=== PATIENT | female | born 1940 | race Caucasian/White ===

== ENCOUNTER 2020-03-14 14:55 | Emergency (ER) | payer MEDICARE ==
[~2020-03-14] VITALS: Ht 160 cm; Wt 72.6 kg
[2020-03-14] MEDS ORDERED: KETOROLAC TROMETHAMINE INJ 30 MG/ML VIAL IV ONE (15:30)
[2020-03-14] MEDS ORDERED: IV NS 0.9% 500 ML BAG IV ONE (15:30)
[2020-03-14] MEDS ORDERED: METOCLOPRAMIDE HCL 10 MG/2 ML VIAL IV ONE (15:30)
--- NOTE | 2020-03-14 15:30 | NUR ---
high blood pressure; family called 911; BP -field = 213/98. PT AAOX4, C/O COX & DIZZINESS. RR EVEN & UNLABORED. DENIES CP, SOB, N/V AT THIS TIME. PT SEEN & EVAL'D BY DR. ALLISON. PLACED ON AUTOMOBILE MECHANIC SUPERVISOR, SR. WILL CONT TO MONITOR.
[2020-03-14 15:58] LABS: BASOPHILS % (AUTO) 0.1 % (0.0-2.0); EOSINOPHILS % (AUTO) 0.3 % (0.0-6.0); HEMATOCRIT 41 % (33-45); HEMOGLOBIN 13.4 g/dL (11.5-14.8); LYMPHOCYTES # (AUTO) 0.5 /CMM (0.8-4.8); LYMPHOCYTES % (AUTO) 8.9 % (20.0-44.0); MEAN CORPUSCULAR HGB CONC 33 g/dl (31.0-36.0); MEAN CORPUSCULAR VOLUME 89 fL (82-100); MONOCYTES # (AUTO) 0.3 /CMM (0.1-1.30); MONOCYTES % (AUTO) 6.3 % (2.0-12.0); NEUTROPHILS # (AUTO) 4.4 /CMM (1.8-8.9); NEUTROPHILS % (AUTO) 84.4 % (43.0-81.0); PLATELET COUNT (AUTO) 181 /CMM (150-450); RED BLOOD CELL COUNT(AUTO) 4.55 MIL/uL (4.0-5.2); WHITE BLOOD COUNT (AUTO) 5.3 K/uL (4.3-11.0)
[2020-03-14] MEDS ORDERED: KETOROLAC TROMETHAMINE INJ 30 MG/ML VIAL ONE (16:05)
[2020-03-14] MEDS ORDERED: METOCLOPRAMIDE HCL 10 MG/2 ML VIAL ONE (16:06)
[2020-03-14 16:11] LABS: CALCIUM, SERUM 8.7 mg/dL (8.5-10.1); CREATININE 0.9 mg/dL (0.6-1.3)
[2020-03-14] MEDS ORDERED: CLONIDINE HCL 0.1 MG TABLET ONE (16:17)
[2020-03-14] MEDS ORDERED: CLONIDINE HCL 0.1 MG TABLET PO ONE (16:30)
--- NOTE | 2020-03-14 17:41 | NUR ---
Patient discharged to home in stable condition. Written and verbal after care instructions given. Patient verbalizes understanding of instruction. IV removed. Catheter intact and site benign. Pressure and 4x4 applied to site. No bleeding noted.
[2020-03-14 17:42] VITALS: BP 142/72
== END 2020-03-14 17:42 | disposition home or self-care (01) ==
LOC: ER 14:58
DX: I10 Essential (primary) hypertension (principal); R51 Headache
CPT/HCPCS: 36415; 70450; 80048; 85025; 93005; 96374; 96375; 99285; J1885; J2765; J7040

== ENCOUNTER 2021-12-31 23:11 | Inpatient (IN) | payer MEDICARE ==
[~2021-12-31] VITALS: Ht 157.5 cm; Wt 64.0 kg
--- NOTE | 2021-12-31 23:15 | NUR ---
RN ADMITTING NOTE PATIENT RECEIVED FROM [facility], REPORT GIVEN BY HECTOR TORRES. PATIENT ACCOMPANIED BY 2 EMT. PATIENT IS ON RA, TOLERATING WELL WITH 97% O2 SAT, NO SOB, LUNGS CLEAR UPON AUSCULTATION. PATIENT CONFUSED, UNABLE TO STATE NAME, PLACE, TIME. FAMILY ALSO AT BEDSIDE, PER DAUGHTER, PATIENT'S AMS STARTED IN AM WHEN SHE VISITED HER MOM. PATIENT LIVES ALONE. PATIENT IS VACCINATED WITH COVID X 2. PATIENT'S TELE MONITOR READS SR WITH PVC 80 BPM. SKIN ASSESSED. PATIENT CAME FROM [place] WITH RESTRAINTS ON D/T PULLING OUT LINES, DECLOTHING, TRYING TO GET OUT OF THE BED. SAFETY MEASURES IMPLEMENTED: BED LOCKED AND IN LOWEST POSITION, CALL LIGHT WITHIN REACH, SIDE RAILS UP. WILL MONITOR PATIENT CLOSELY.
[2021-12-31 23:21] VITALS: BP 116/69
--- NOTE | 2021-12-31 23:50 | NUR ---
NURSING SWALLOW EVAL PATIENT UNABLE TO FOLLOW COMMAND TO SHOW TONGUE, COUGH VOLUNTARILY, SHOW TEETH. PATIENT IS ALSO SHAKING HEAD SIDE TO SIDE INDICATING NO, EVEN WITH INTERPRETATION. WILL NOTIFY .
--- NOTE | 2022-01-01 00:40 | NUR ---
LENNY PATEL TO OBTAIN ADMITTING ORDERS
--- NOTE | 2022-01-01 01:15 | NUR ---
RN NOTE MD CALLED BACK. NOTIFIED MD REGARDING PATIENT TRYING TO TAKE LINES OUT MULTIPLE TIMES AND GETTING OUT OF BED, PATIENT RESTLESS. ORDER FOR RESTRAINTS OBTAINED. NOTIFIED MD REGARDING FAILED NURSING SWALLOW EVAL. AWAITING THE REST OF ADMITTING ORDERS
[2022-01-01] MEDS ORDERED: Z GUARD REMEDY 4 OZ OINT TP PRN (01:30)
[2022-01-01] MEDS ORDERED: AZITHROMYCIN 250 MG TABLET PO ONE (01:30)
[2022-01-01] MEDS ORDERED: MAG HYDROX/AL HYDROX/SIMETH 30 ML UDC PO PRN (01:30)
[2022-01-01] MEDS ORDERED: CEFTRIAXONE 1 G in IV D5W 50 ML IV SCH (01:30)
[2022-01-01] MEDS ORDERED: ZOLPIDEM TARTRATE 5 MG TABLET PO PRN (01:30)
[2022-01-01] MEDS ORDERED: MAGNESIUM HYDROXIDE 30 ML UDC PO PRN (01:30)
[2022-01-01] MEDS ORDERED: ONDANSETRON HCL/PF 4 MG/2 ML VIAL IVP PRN (01:30)
[2022-01-01] MEDS: IV NS 0.9% 1,000 ML IV SCH ×3 (01:53→21:27)
[2022-01-01] MEDS ORDERED: CEFTRIAXONE 1 G VIAL ONE (01:55)
--- NOTE | 2022-01-01 01:55 | NUR ---
RN NOTE MD PAGED RE: ZITHROMAX ORDER CLARIFICATION. ORDER IS PO, PATIENT NPO AT THIS TIME
[2022-01-01 04:00] VITALS: BP_SYST 132; BP_SYST 148; BP_DIAS 62; BP_DIAS 84
--- NOTE | 2022-01-01 05:30 | NUR ---
5am EKG done. Results not transferring to cardio kitchen food server. Results are given to RN and placed in physical chart.
[2022-01-01 06:37] LABS: BASOPHILS % (AUTO) 0.2 % (0.0-2.0); EOSINOPHILS % (AUTO) 0.3 % (0.0-6.0); HEMATOCRIT 38 % (33-45); HEMOGLOBIN 12.9 g/dL (11.5-14.8); LYMPHOCYTES # (AUTO) 1.2 K/uL (0.8-4.8); LYMPHOCYTES % (AUTO) 16.2 % (20.0-44.0); MEAN CORPUSCULAR HGB CONC 34 g/dl (31.0-36.0); MEAN CORPUSCULAR VOLUME 88 fL (82-100); MONOCYTES # (AUTO) 0.7 K/uL (0.1-1.30); MONOCYTES % (AUTO) 8.7 % (2.0-12.0); NEUTROPHILS # (AUTO) 5.7 K/uL (1.8-8.9); NEUTROPHILS % (AUTO) 74.6 % (43.0-81.0); PLATELET COUNT (AUTO) 219 K/uL (150-450); RED BLOOD CELL COUNT(AUTO) 4.28 MIL/uL (4.0-5.2); WHITE BLOOD COUNT (AUTO) 7.6 K/uL (4.3-11.0)
--- NOTE | 2022-01-01 06:48 | NUR ---
RN CLOSING NOTE PATIENT IN BED, AWAKE, STILL RESTLESS IN BED TRYING TO GET OUT OF BED. PATIENT SWINGS HER LEGS OUT OF THE BED. GOT OUT OF RESTRAINTS TWICE. RESTRAINTS PLACED D/T PATIENT REMOVING EQUIPMENT AND IV LINES, AND GETTIN GOUT OF BED. NO INJURY NOTED. CHARGE NRUSE AWARE. POSSIBLY GETTING A SITTER. PATIENT IS ON RA 97% O2 SAT. PATIENT CURRENTLY NPO AT THIS TIME, DT PATIENT NOT ABLE TO FOLLOW COMMANDS. PER CANDY POLISHER PATIENT IS SAYING YES SHE CAN DO IT, BUT NOT FOLLOWING THROUGH WITH ACTION. PATIENT'S FAMILY WILL BRING HOME MEDS TODAY. TELE MONITOR READS SR 75 BPM. LAC 22 G PATENT AND INTACT RUNNING NS AT 100 ML/HR. SAFETY MEASURES IN PLACE: BED LOCKED AND IN LOWEST POSITION, CALL LIGHT WITHIN REACH, SIDE RAILS UP. ALL NEEDS MET AND ATTENDED. WILL ENDORSE TO DAY SHIFT NURSE FOR RASHI
[2022-01-01 07:23] LABS: CALCIUM, SERUM 8.3 mg/dL (8.5-10.1); CARBON DIOXIDE 23 mmol/L (21-32); CHLORIDE 105 mmol/L (98-107); CREATININE 0.9 mg/dL (0.6-1.3); GLUCOSE 120 mg/dL (74-106); MAGNESIUM 1.5 mg/dL (1.8-2.4); PHOSPHORUS 3.2 mg/dL (2.5-4.9); POTASSIUM 3.7 mmol/L (3.5-5.1); SODIUM SERUM 140 mmol/L (136-145); UREA NITROGEN, BLOOD 15 mg/dL (7-18)
[2022-01-01 07:28] LABS: CHOLESTEROL 133 mg/dL (<200); HDL CHOLESTEROL 42 mg/dL (40-60); LDL 66 mg/dL (0-99); TRIGLYCERIDES 159 mg/dL (30-150)
--- NOTE | 2022-01-01 07:30 | NUR ---
MS RN OPENING NOTES RECEIVED PATIENT ON BED AWAKE AND A/O X0-1, CONFUSED. ON ROOM AIR TOLERATING WELL. NO SOB NOTED. NOT IN DISTRESS. WITH IV ACCESS AT THE LEFT AC G22 WITH NS AT 100ML/HR INFUSING WELL. SAFETY MEASURES IN PLACED. CALL LIGHT WITHIN REACH. BED ON LOWEST LOCKED POSITION, SIDE RAILS UP X2. WILL CONTINUE TO MONITOR.
[2022-01-01 08:00] VITALS: BP 150/72
--- NOTE | 2022-01-01 08:17 | NUR ---
DAUGHTER JAMIL [phone]
[2022-01-01] MEDS ORDERED: DEXTROSE 50%-WATER 50 ML DISP.SYRIN IV PRN (08:30)
[2022-01-01] MEDS ORDERED: DEXL60CA3 PO (08:34)
[2022-01-01] MEDS ORDERED: PREG-58 PO (08:34)
[2022-01-01] MEDS ORDERED: RANO10005 PO (08:34)
[2022-01-01] MEDS ORDERED: EMPA1TAB24 PO (08:34)
[2022-01-01] MEDS ORDERED: NEBI10TA2 PO (08:34)
[2022-01-01] MEDS ORDERED: CELE-85 PO (08:34)
[2022-01-01] MEDS ORDERED: CLOP75TA15 PO (08:34)
[2022-01-01] MEDS ORDERED: LINA1TAB9 PO (08:34)
[2022-01-01] MEDS ORDERED: IRBESARTAN-HCTZ PO (08:34)
--- NOTE | 2022-01-01 09:19 | NUR ---
WOUND CARE CONSULT: PTY PRESENTS WITH DISCOLORATION TO RT ARM AND HAND WELL SACRAL INTACT DEEP TISSUE INJURY, PRESENT ON ADMISSION. RECOMMENDATIONS MADE FOR SKIN PROTECTION. DISCUSSED WITH NURSING STAFF. MD IN AGREEMENT WITH PLAN OF CARE. SITTER AT BEDSIDE.
[2022-01-01] MEDS: BLOOD SUGAR DIAGNOSTIC 1 EACH STRIP IN SCH ×4 (10:07→21:46)
[2022-01-01] MEDS: Magnesium 1GM/D5W 100ML PREMIX 100 ML IV SCH ×2 (11:16→12:51)
[2022-01-01 16:00] VITALS: BP 152/71
--- NOTE | 2022-01-01 19:30 | NUR ---
MS RN CLOSING NOTES PATIENT ON BED AWAKE AND A/O X0-1, CONFUSED. ON ROOM AIR TOLERATING WELL. NO SOB NOTED. NOT IN DISTRESS. WITH IV ACCESS AT THE LEFT AC G22 WITH NS AT 100ML/HR INFUSING WELL. DUE MEDS GIVEN. SAFETY MEASURES IN PLACED. CALL LIGHT WITHIN REACH. BED ON LOWEST LOCKED POSITION, SIDE RAILS UP X2. WILL ENDORSE TO NEXT SHIFT FOR RASHI.
--- NOTE | 2022-01-01 19:59 | NUR ---
RECEIVED PATIENT IN BED, ALERT/AWAKE, CALM, NOT IN APPARENT DISTRESS, LEFT ARM RESTRAINT, IVF INFUSING, INCONTINENT OF BOWEL AND BLADDER, PUREWICK IN PLACE. SITTER AT THE BEDSIDE, KEPT SAFE, WILL CONTINUE TO MONITOR.
[2022-01-01 20:00] VITALS: BP 148/79
[2022-01-01 20:25] LABS: HEMOGLOBIN 13.5 g/dL (11.5-14.8)
[2022-01-01] MEDS: CEFTRIAXONE 1 G in IV D5W 50 ML IV SCH (20:40)
--- NOTE | 2022-01-01 21:27 | NUR ---
NS NOT ADMINISTERED, PREVIOUS NS STILL INFUSING
[2022-01-01] MEDS: INSULIN REGULAR, HUMAN 100 UNIT/ML 3 ML VIAL SQ PRN (21:49)
--- NOTE | 2022-01-01 21:50 | NUR ---
BILATERAL WRIST RESTRAINTS REMOVED, PATIENT ASLEEP WITH SITTER AT THE BEDSIDE
--- NOTE | 2022-01-01 21:50 | NUR ---
NO INSULIN GIVEN, BG 95 MG/DL
[2022-01-02] VITALS: BP 135/72
[2022-01-02 04:00] VITALS: BP 144/76
[2022-01-02 04:07] LABS: BASOPHILS % (AUTO) 0.2 % (0.0-2.0); EOSINOPHILS % (AUTO) 0.8 % (0.0-6.0); HEMATOCRIT 37 % (33-45); HEMOGLOBIN 12.5 g/dL (11.5-14.8); LYMPHOCYTES # (AUTO) 1.2 K/uL (0.8-4.8); LYMPHOCYTES % (AUTO) 18.8 % (20.0-44.0); MEAN CORPUSCULAR HGB CONC 34 g/dl (31.0-36.0); MEAN CORPUSCULAR VOLUME 88 fL (82-100); MONOCYTES # (AUTO) 0.5 K/uL (0.1-1.30); MONOCYTES % (AUTO) 7.6 % (2.0-12.0); NEUTROPHILS # (AUTO) 4.8 K/uL (1.8-8.9); NEUTROPHILS % (AUTO) 72.6 % (43.0-81.0); PLATELET COUNT (AUTO) 219 K/uL (150-450); RED BLOOD CELL COUNT(AUTO) 4.18 MIL/uL (4.0-5.2); WHITE BLOOD COUNT (AUTO) 6.6 K/uL (4.3-11.0)
[2022-01-02 04:22] LABS: CARBON DIOXIDE 22 mmol/L (21-32); CHLORIDE 106 mmol/L (98-107); CREATININE 0.7 mg/dL (0.6-1.3); GLUCOSE 86 mg/dL (74-106); MAGNESIUM 1.8 mg/dL (1.8-2.4); PHOSPHORUS 3.1 mg/dL (2.5-4.9); POTASSIUM 3.5 mmol/L (3.5-5.1); SODIUM SERUM 139 mmol/L (136-145); UREA NITROGEN, BLOOD 10 mg/dL (7-18)
[2022-01-02] MEDS: IV NS 0.9% 1,000 ML IV SCH ×2 (06:20→17:39)
[2022-01-02] MEDS: INSULIN REGULAR, HUMAN 100 UNIT/ML 3 ML VIAL SQ PRN ×3 (06:44→22:17)
--- NOTE | 2022-01-02 06:44 | NUR ---
NO INSULIN GIVEN, BG 82 MG/DL
--- NOTE | 2022-01-02 06:45 | NUR ---
ALERT/ORIENTED X1, CONFUSED, CALM, COOPERATIVE, NO DISTRESS, NO COMPLAIN OF PAIN. REMOVED BILATERAL WRIST RESTRAINTS, NS AT 100 ML/HR, SITTER AT THE BEDSIDE FOR SAFETY, PATIENT REMOVING IV LINE. REMAINED NPO PENDING ST EVAL. ROCEPHIN FOR UTI.
[2022-01-02] MEDS: BLOOD SUGAR DIAGNOSTIC 1 EACH STRIP IN SCH ×4 (06:52→22:14)
--- NOTE | 2022-01-02 07:30 | NUR ---
HEAD MILLER OPENING NOTES RECEIVED PATIENT LYING IN BED COMFORTABLY. PATIENT IS ALERT/ORIENTED X 2 (PLACE, NAME). PATIENT HAS NO S/S OF PAIN, DISCOMFORT AND SOB IN ROOM AIR. REMOVED BILATERAL WRIST RESTRAINTS. IV LINE IN L AC #22G WITH NS AT 100 ML/HR, INTACT AND PATENT. SITTER BY THE BEDSIDE FOR SAFETY. REMAINED NPO FOR ST EVAL. SAFETY MEASURES INITIATED. WILL CONTINUE TO MONITOR FOR RASHI.
[2022-01-02 13:07] LABS: BILIRUBIN,URINE NEGATIVE (NEGATIVE); COLOR,URINE YELLOW (YELLOW); LEUKOCYTE ESTERASE ,URINE NEGATIVE (NEGATIVE); NITRITE, URINE NEGATIVE (NEGATIVE); PROTEIN,URINE NEGATIVE (NEGATIVE); UGLUCOSE 500 MG/DL mg/dL (NEGATIVE); UROBILINOGEN,URINE 0.2 EU/dL (0.2)
--- NOTE | 2022-01-02 18:25 | NUR ---
BAIT MAKER CLOSING NOTES PATIENT LYING IN BED COMFORTABLY. PATIENT IS ALERT/ORIENTED X 2 (PLACE, NAME). PATIENT HAS NO S/S OF PAIN, DISCOMFORT AND SOB IN ROOM AIR. REMOVED BILATERAL WRIST RESTRAINTS. IV LINE IN L AC #22G WITH NS AT 100 ML/HR, INTACT AND PATENT. DAUGHTER BY THE BEDSIDE. SITTER BY THE BEDSIDE FOR SAFETY. DIET IS SWITCHED TO SOFT DIET. SAFETY MEASURES INITIATED. WILL ENDORSE TO INCOMING FOR RASHI.
[2022-01-02 20:00] VITALS: BP 133/76
[2022-01-02] MEDS: CEFTRIAXONE 1 G in IV D5W 50 ML IV SCH (21:14)
[2022-01-02] MEDS: AZITHROMYCIN 250 MG TABLET PO SCH (21:14)
[2022-01-03 04:00] VITALS: BP 136/76
[2022-01-03] MEDS: IV NS 0.9% 1,000 ML IV SCH ×3 (04:57→23:43)
[2022-01-03] MEDS: BLOOD SUGAR DIAGNOSTIC 1 EACH STRIP IN SCH ×4 (06:45→22:00)
[2022-01-03] MEDS: INSULIN REGULAR, HUMAN 100 UNIT/ML 3 ML VIAL SQ PRN ×4 (06:47→23:41)
--- NOTE | 2022-01-03 06:52 | NUR ---
WITH CONFUSION, PALESTINIAN SPEAKING ONLY, CALM, COOPERATIVE, ROOM AIR, NO COMPLAIN OF PAIN, WEAKNESS, ACCUCHECK WITH SLIDING SCALE, UPGRADED DIET TO SOFT, SWALLOWS MEDICATION WHOLE, ROCEPHIN FOR UTI, ZITHROMAX PO, CONTINUE IVF, FALL PRECAUTION, SITTER AT THE BEDSIDE, SUPPORTIVE CARE.
--- NOTE | 2022-01-03 07:30 | NUR ---
MAIL TELLER OPENING NOTES RECEIVED PATIENT LYING IN BED COMFORTABLY. PATIENT IS ALERT/ORIENTED X 2 (PLACE, NAME). PATIENT HAS NO S/S OF PAIN, DISCOMFORT AND SOB IN ROOM AIR. REMOVED BILATERAL WRIST RESTRAINTS. IV LINE IN L AC #22G WITH NS AT 100 ML/HR, INTACT AND PATENT. SITTER BY THE BEDSIDE FOR SAFETY. DIET IS SWITCHED TO SOFT DIET. SAFETY MEASURES INITIATED. WILL CONTINUE TO MONITOR FOR RASHI.
--- NOTE | 2022-01-03 18:54 | NUR ---
RN NOTES: PATIENT PULLED OUT IV ACCESS, REINSERTED IV ACCESS ON RIGHT HAND G#20 PATENT AND INTACT, SECURED WITH TAPE AND COVERED WITH KERLIX DRESSING.
--- NOTE | 2022-01-03 18:57 | NUR ---
MS RN CLOSING NOTES PATIENT LYING IN BED AWAKE. PATIENT IS ALERT/ORIENTED X 2 . PATIENT HAS NO S/S OF PAIN, DISCOMFORT AND SOB IN ROOM AIR. IV LINE IN RIGHT HAND #20G WITH NS AT 100 ML/HR, INTACT AND PATENT. SITTER BY THE BEDSIDE FOR SAFETY. SAFETY MEASURES MAINTAINED:BED IN LOWEST AND LOCKED POSITION, SIDE RAILS UP X 2 CALL LIGHT IN EASY REACH FOR HELP/ASSISTANCE. WILL CONTINUE TO MONITOR AND ENDORSED TO CERTIFIED LEGAL SECRETARY SPECIALIST FOR RASHI.
[2022-01-03 20:00] VITALS: BP_SYST 100; BP_SYST 135; BP_DIAS 61; BP_DIAS 63
--- NOTE | 2022-01-03 20:00 | NUR ---
RN OPENING NOTES: RECEIVED PATIENT SLEEP IN BED AROUSABLE TO VERBAL STIMULI, BED IN LOW POSITION CALL LIGHTS WITHIN REACH, NO COMPLAIN OF PAIN AND DISCOMFORT AT THIS TIME,ON ROOM AIR SATURATING WELL WITH IV LINE AT RT HAND WITH ONGOING NSS@100ML/HR INFUSING WELL, PATIENT WITH 1:1 SITTER, PATIENT KEPT CLEAN AND DRY ALL NEEDS MET WILL CONTINUE TO MONITOR.
[2022-01-03] MEDS: CEFTRIAXONE 1 G in IV D5W 50 ML IV SCH (21:43)
[2022-01-03] MEDS: AZITHROMYCIN 250 MG TABLET PO SCH (21:45)
--- NOTE | 2022-01-03 23:45 | NUR ---
RN NOTES: BS-149- 3 UNITS INSULIN GIVEN PER SLIDING SCALE
--- NOTE | 2022-01-04 06:17 | NUR ---
RN CLOSING NOTES: PATIENT SLEEP IN BED COMFORTABLY, AROUSABLE TO VERBAL STIMULI, BED IN LOW POSITION CALL LIGHTS WITHIN REACH, NO COMPLAIN OF PAIN AND DISCOMFORT AT THIS TIME, ON ROOM AIR SATURATING WELL WITH : 1:1 SITTER, PATIENT KEPT CLEAN AND DRY ALL NEEDS MET ENDORSE TO INCOMING SHIFT.
--- NOTE | 2022-01-04 06:30 | NUR ---
RN NOTES: BLOOD SUGAR-129- NO INSULIN GINVE PER SLIDING SCALE
[2022-01-04] MEDS: BLOOD SUGAR DIAGNOSTIC 1 EACH STRIP IN SCH ×4 (06:40→21:58)
--- NOTE | 2022-01-04 08:18 | NUR ---
MS RN OPENING NOTES RECEIVED PATIENT IN BED, A/O X2, CONFUSED. ON ROOM AIR; BREATHING EVEN AND UNLABORED; NO SOB NOTED. ABLE TO VERBALIZE NEEDS. NO COMPLAINS OF PAIN. PATIENT IS ON A 5250 HOLD. LAC IV G#20 SL, INTACT AND PATENT. SAFETY MEASURES MAINTAINED: BED IN LOW POSITION AND LOCKED, SIDE RAILS UP X2, CALL LIGHT WITHIN REACH. WILL CONTINUE TO MONITOR PATIENT.
[2022-01-04] MEDS: IV NS 0.9% 1,000 ML IV SCH ×2 (08:54→19:30)
--- NOTE | 2022-01-04 10:14 | NUR ---
PROCESS ENGINEER/MED RECON PATIENT AND FAMILY AT BEDSIDE, MADE AWARE RE: IRBESARTAN BEING NON-FORMULARY. FAMILY WILL BRING HOME MEDICATION SUPPLY LATER. PHARMACY AND PRIMARY RN AWARE.
[2022-01-04 16:09] VITALS: BP 172/79
[2022-01-04] MEDS: RANOLAZINE 500 MG TAB.ER.12H PO SCH (16:10)
[2022-01-04] MEDS: PREGABALIN 25 MG CAPSULE PO SCH (16:11)
[2022-01-04] MEDS: INSULIN REGULAR, HUMAN 100 UNIT/ML 3 ML VIAL SQ PRN ×2 (17:10→22:00)
--- NOTE | 2022-01-04 18:37 | NUR ---
MS RN CLOSING NOTES PATIENT REMAINS IN BED, A/O X2, CONFUSED, FAMILY AT BEDSIDE. ON ROOM AIR; BREATHING EVEN AND UNLABORED; NO SOB NOTED DURING SHIFT. ABLE TO VERBALIZE NEEDS. NO COMPLAINS OF PAIN. PATIENT IS ON A 5250 HOLD. LAC IV G#20 SL, INTACT AND PATENT.ALL NEEDS ATTENDED DURING THE DAY. DC PLAN FOR TOMORROW. SAFETY MEASURES MAINTAINED: BED IN LOW POSITION AND LOCKED, SIDE RAILS UP X2, CALL LIGHT WITHIN REACH. WILL ENDORSE TO DIRECTOR OF OPERATIONS HOME HEALTH NURSE FOR RASHI.
[2022-01-04 20:00] VITALS: BP 156/68
[2022-01-04] MEDS: AZITHROMYCIN 250 MG TABLET PO SCH (20:46)
[2022-01-04] MEDS: CEFTRIAXONE 1 G in IV D5W 50 ML IV SCH (20:46)
[2022-01-04] MEDS: METOPROLOL TARTRATE 50 MG TABLET PO SCH (20:46)
--- NOTE | 2022-01-05 02:43 | NUR ---
RN OPENING NOTES RECEIVED PT IN BED, AWAKE, WITH FAMILY MEMBER AT BEDSIDE. AOx2. ON RA AND TOLERATING WELL. NO SOB NOTED. NO S/SX OF RESPIRATORY DISTRESS NOTED. IV ACCESS IN R HAND #20G RUNNING NS @ 100 ML/HR. SAFETY PRECAUTIONS IN PLACE: BED IN LOWEST, LOCKED POSITION, SIDERAILS UPx2, AND BRAKES ON. TABLE AND CALL LIGHT WITHIN REACH. WILL CONTINUE TO MONITOR. Addendum: 01/05/22 at 0246 by NIKKY MALONEY RN TIME SHOULD BE AT 1930
[2022-01-05] MEDS: IV NS 0.9% 1,000 ML IV SCH ×2 (05:30→15:38)
[2022-01-05] MEDS: BLOOD SUGAR DIAGNOSTIC 1 EACH STRIP IN SCH ×4 (06:35→21:35)
[2022-01-05] MEDS: INSULIN REGULAR, HUMAN 100 UNIT/ML 3 ML VIAL SQ PRN ×4 (06:36→21:37)
[2022-01-05 06:41] LABS: BASOPHILS % (AUTO) 0.3 % (0.0-2.0); EOSINOPHILS % (AUTO) 3.1 % (0.0-6.0); HEMATOCRIT 34 % (33-45); HEMOGLOBIN 11.6 g/dL (11.5-14.8); LYMPHOCYTES # (AUTO) 1.1 K/uL (0.8-4.8); LYMPHOCYTES % (AUTO) 24.1 % (20.0-44.0); MEAN CORPUSCULAR HGB CONC 34 g/dl (31.0-36.0); MEAN CORPUSCULAR VOLUME 89 fL (82-100); MONOCYTES # (AUTO) 0.4 K/uL (0.1-1.30); MONOCYTES % (AUTO) 9.5 % (2.0-12.0); PLATELET COUNT (AUTO) 202 K/uL (150-450); RED BLOOD CELL COUNT(AUTO) 3.85 MIL/uL (4.0-5.2); WHITE BLOOD COUNT (AUTO) 4.7 K/uL (4.3-11.0)
--- NOTE | 2022-01-05 06:48 | NUR ---
RN CLOSING NOTES PT IN BED, ASLEEP, AWAKENS TO VERBAL STIMULI. AOx2. ON RA AND TOLERATING WELL. NO SOB NOTED. NO S/SX OF RESPIRATORY DISTRESS NOTED. IV ACCESS IN R HAND #20G RUNNING NS @ 100 ML/HR. ALL ORDERS CARRIED OUT. ALL NEEDS MET. PT KEPT CLEAN AND DRY. SAFETY PRECAUTIONS IN PLACE: BED IN LOWEST, LOCKED POSITION, SIDERAILS UPx2, AND BRAKES ON. TABLE AND CALL LIGHT WITHIN REACH. WILL ENDORSE TO ONCOMING SHIFT FOR RASHI.
--- NOTE | 2022-01-05 07:37 | NUR ---
MS RN OPENING NOTES RECEIVED PATIENT AWAKE IN BED. AOx2. ESTONIAN SPEAKER.ABLE TO MAKE NEEDS KNOWN. ON RA AND TOLERATING WELL. NO SOB NOTED. NO S/SX OF RESPIRATORY DISTRESS NOTED. IV ACCESS IN R HAND #20G RUNNING NS @ 100 ML/HR. ALL ORDERS CARRIED OUT. ALL NEEDS MET. PT KEPT CLEAN AND DRY. SAFETY PRECAUTIONS IN PLACE: BED IN LOWEST, LOCKED POSITION, SIDE RAILS UPx2, AND BRAKES ON. BED ALARM ON. TABLE AND CALL LIGHT WITHIN REACH. WILL CONTINUE TO MONITOR.
[2022-01-05 07:41] LABS: CALCIUM, SERUM 8.6 mg/dL (8.5-10.1); CARBON DIOXIDE 24 mmol/L (21-32); CHLORIDE 109 mmol/L (98-107); CREATININE 0.6 mg/dL (0.6-1.3); GLUCOSE 145 mg/dL (74-106); MAGNESIUM 1.8 mg/dL (1.8-2.4); PHOSPHORUS 3.3 mg/dL (2.5-4.9); POTASSIUM 3.3 mmol/L (3.5-5.1); SODIUM SERUM 142 mmol/L (136-145); UREA NITROGEN, BLOOD 10 mg/dL (7-18)
[2022-01-05] MEDS: PANTOPRAZOLE 40 MG TABLET.DR PO SCH (09:23)
[2022-01-05] MEDS: PREGABALIN 25 MG CAPSULE PO SCH ×2 (09:23→16:36)
[2022-01-05] MEDS: RANOLAZINE 500 MG TAB.ER.12H PO SCH ×2 (09:23→16:35)
[2022-01-05] MEDS: METOPROLOL TARTRATE 50 MG TABLET PO SCH ×2 (09:24→21:26)
[2022-01-05] MEDS: CLOPIDOGREL BISULFATE 75 MG TABLET PO SCH (09:24)
[2022-01-05] MEDS: HCTZ PO SCH (09:25)
[2022-01-05] MEDS: IRBESARTAN PO SCH (09:25)
[2022-01-05] MEDS ORDERED: POTASSIUM CHLORIDE 20 MEQ TAB.PRT.SR PO SCH (10:00)
[2022-01-05] MEDS ORDERED: CEPH500C2 PO (11:36)
[2022-01-05 16:00] VITALS: BP 118/68
--- NOTE | 2022-01-05 18:45 | NUR ---
MS RN CLOSING NOTES PATIENT AWAKE IN BED. AOx2. BELIZEAN SPEAKER.ABLE TO MAKE NEEDS KNOWN. ON RA AND TOLERATING WELL. NO SOB NOTED. NO S/SX OF RESPIRATORY DISTRESS NOTED. IV ACCESS IN R HAND #20G INTACT. REFUSED IV HYDRATION. ALL DUE MEDS GIVEN ORDERED. ALL NEEDS MET. PT KEPT CLEAN AND DRY. SAFETY PRECAUTIONS IN PLACE: BED IN LOWEST, LOCKED POSITION, SIDE RAILS UPx2, AND BRAKES ON. BED ALARM ON. TABLE AND CALL LIGHT WITHIN REACH. WILL ENDORSE FOR RASHI.
--- NOTE | 2022-01-05 19:10 | NUR ---
RN opening notes Received Pt sitting in bed comfortably watching TV. Pt is alert and orientedX2. On room air. No SOB. No S/S of distress noted. IV site at R hand # 20 is clean, intact and SL. Pt refuses IV fluid at this time. Explained risks and benefits. Pt keep refusing. Safety precautions is maintained. Bed at low position, brakes locked, side rails upX2, hob elevated, bed alarm is on and call light is within reach. Will continue to monitor.
[2022-01-05 20:00] VITALS: BP 164/81
[2022-01-05] MEDS: CEFTRIAXONE 1 G in IV D5W 50 ML IV SCH (21:24)
[2022-01-05] MEDS: AZITHROMYCIN 250 MG TABLET PO SCH (21:24)
[2022-01-05 22:09] VITALS: BP 164/81
[2022-01-05] MEDS: ACETAMINOPHEN 325 MG TABLET PO PRN (23:43)
--- NOTE | 2022-01-05 23:46 | NUR ---
RN notes Pt is complaining of mild pain on R arm and requesting tylenol. administered tylenol 650 mg/po/prn as ordered for pain per Pt's request. Will continue to monitor.
[2022-01-06] VITALS: BP 151/76
[2022-01-06] MEDS: IV NS 0.9% 1,000 ML IV SCH ×3 (01:37→21:20)
[2022-01-06] MEDS: BLOOD SUGAR DIAGNOSTIC 1 EACH STRIP IN SCH ×4 (06:32→21:38)
[2022-01-06] MEDS: INSULIN REGULAR, HUMAN 100 UNIT/ML 3 ML VIAL SQ PRN ×4 (06:35→21:38)
--- NOTE | 2022-01-06 06:45 | NUR ---
RN closing notes Pt is resting in bed comfortably. Pt is alert and orientedX2. On room air. No SOB. No S/S of distress noted. IV site at R hand # 20 is clean, intact. Pt still refusing IV fluids despites explanation risks and benefits. Routine meds were given as ordered. Kept Pt clean, dry and comfortable. Safety precautions is maintained. Bed at low position, brakes locked, side rails upX2, hob elevated, bed alarm is on and call light is within reach. Will endorse to am nurse for RASHI.
[2022-01-06 07:01] LABS: CALCIUM, SERUM 8.9 mg/dL (8.5-10.1); CARBON DIOXIDE 25 mmol/L (21-32); CHLORIDE 105 mmol/L (98-107); CREATININE 0.6 mg/dL (0.6-1.3); GLUCOSE 150 mg/dL (74-106); POTASSIUM 3.7 mmol/L (3.5-5.1); SODIUM SERUM 139 mmol/L (136-145); UREA NITROGEN, BLOOD 11 mg/dL (7-18)
--- NOTE | 2022-01-06 07:56 | NUR ---
MS RN OPENING NOTE Patient in bed, awake. A/O x 2, confused at times. On room air, breathing evenly and unlabored. No SOB or s/s of distress noted. IV access on right hand, refused IV fluids. Safety precautions in place: bed in low, locked position; siderails up x 2; call light within reach. Will continue to monitor.
[2022-01-06] MEDS: METOPROLOL TARTRATE 50 MG TABLET PO SCH ×2 (09:04→21:21)
[2022-01-06] MEDS: IRBESARTAN PO SCH (09:04)
[2022-01-06] MEDS: RANOLAZINE 500 MG TAB.ER.12H PO SCH ×2 (09:04→17:47)
[2022-01-06] MEDS: PREGABALIN 25 MG CAPSULE PO SCH ×2 (09:04→17:47)
[2022-01-06] MEDS: PANTOPRAZOLE 40 MG TABLET.DR PO SCH (09:04)
[2022-01-06] MEDS: HCTZ PO SCH (09:04)
[2022-01-06] MEDS: CLOPIDOGREL BISULFATE 75 MG TABLET PO SCH (09:04)
--- NOTE | 2022-01-06 18:30 | NUR ---
RN NOTE Walker given to patient, daughter brought home walker.
--- NOTE | 2022-01-06 19:01 | NUR ---
MS RN CLOSING NOTE Patient in bed, resting. A/O x 2, confused at times. Stable on room air, breathing evenly and unlabored. No SOB or s/s of distress noted. IV access on right hand, refusing IV fluids. Due meds given. All needs attended to. Safety precautions in place: bed in low, locked position; siderails up x 2; call light within reach. Will endorse to packing floor worker nurse for RASHI.
--- NOTE | 2022-01-06 19:15 | NUR ---
RN opening notes Pt is sitting in bed comfortably watching TV. Pt is alert and orientedX2 with episode of confusion. On room air. No SOB. No S/S of distress noted. IV site at R hand # 20 is clean, intact and SL. Safety precautions is maintained. Bed at low position, brakes locked, side rails upX2, hob elevated, bed alarm is on and call light is within reach. Will continue to monitor.
[2022-01-06 20:00] VITALS: BP 167/86
[2022-01-06] MEDS: CEFTRIAXONE 1 G in IV D5W 50 ML IV SCH (20:37)
--- NOTE | 2022-01-06 21:39 | NUR ---
RN notes Pt's blood sugar is 139. Pt refused coverage. explained risks and benefits. Pt keep refusing. Will continue to monitor.
[2022-01-06] MEDS: ACETAMINOPHEN 325 MG TABLET PO PRN (22:41)
--- NOTE | 2022-01-06 22:42 | NUR ---
RN notes Pt is complaining of headache and requesting meds. administered tylenol 650 mg/po/prn as ordered. will continue to monitor.
--- NOTE | 2022-01-06 23:33 | NUR ---
RN notes Pt is having insomnia and requesting a sleeping pill. administered ambien 5mg/po/prn as ordered for sleeping. safety precautions is maintained. Will continue to monitor.
[2022-01-07] VITALS: BP 153/82
[2022-01-07] MEDS: BLOOD SUGAR DIAGNOSTIC 1 EACH STRIP IN SCH ×2 (06:30→12:47)
[2022-01-07] MEDS: INSULIN REGULAR, HUMAN 100 UNIT/ML 3 ML VIAL SQ PRN ×2 (06:30→12:49)
--- NOTE | 2022-01-07 06:31 | NUR ---
RN notes Pt's blood sugar AC is 166. Pt refused coverage. Explained risks and benefits. Pt keep refusing. Will continue to monitor.
[2022-01-07] MEDS: IV NS 0.9% 1,000 ML IV SCH (06:38)
--- NOTE | 2022-01-07 06:39 | NUR ---
RN notes Pt keep refusing IV fluid. explained risks and benefits. Pt stated "No!". Offered several times. Pt keep refusing. Will continue to monitor.
--- NOTE | 2022-01-07 06:40 | NUR ---
RN closing notes Pt is resting in bed comfortably. Pt is alert and orientedX2 with episode of confusion. On room air. No SOB. No S/S of distress noted. IV site at L wrist # 22 is clean, intact and SL. Pt still refusing IV fluid. Explained risks and benefits. Routine meds were given as ordered. Kept Pt clean,dry and comfortable. Safety precautions is maintained. Bed at low position, brakes locked, side rails upX2, hob elevated, bed alarm is on and call light is within reach. Will endorse to am nurse for RASHI.
--- NOTE | 2022-01-07 07:30 | NUR ---
MS RN OPENING NOTES Received patient on bed awake and verbally responsive , no sob and no distress noted . Pt is alert and orientedX2 with episode of confusion and forgetfulness . On room air . IV site at left hand # 22 is clean, intact and SL. Safety precautions is maintained. Bed at low position, brakes locked, side rails upX2, hob elevated, bed alarm is on and call light is within reach. Will continue to monitor.
[2022-01-07 08:20] VITALS: BP 168/96
[2022-01-07 08:42] VITALS: BP 168/96
[2022-01-07] MEDS: PANTOPRAZOLE 40 MG TABLET.DR PO SCH (08:42)
[2022-01-07] MEDS: CLOPIDOGREL BISULFATE 75 MG TABLET PO SCH (08:42)
[2022-01-07] MEDS: METOPROLOL TARTRATE 50 MG TABLET PO SCH (08:42)
[2022-01-07] MEDS: PREGABALIN 25 MG CAPSULE PO SCH (08:42)
[2022-01-07] MEDS: RANOLAZINE 500 MG TAB.ER.12H PO SCH (08:42)
[2022-01-07] MEDS: IRBESARTAN PO SCH (09:00)
[2022-01-07] MEDS: HCTZ PO SCH (09:00)
--- NOTE | 2022-01-07 09:37 | NUR ---
RN NOTE Per pharmacy, patient doesn't have stock of her home med. Family needs to bring in home med.
--- NOTE | 2022-01-07 15:31 | NUR ---
DISCHARGE NOTE Received order for discharge. Patient is A/O x 1, confused. Stable on room air, breathing evenly and unlabored. No SOB or s/s of distress noted. Patient denies any pain or discomfort at this time. All belongings accounted for. Discharge instructions given to Fransisca, patient's daughter, verbalized understanding. IV access removed, catheter tip intact. Pressure dressing applied, no signs of bleeding noted. Exitcare folder given to daughter. Patient left in stable condition via private car with daughter.
== END 2022-01-07 14:20 | disposition home health service (06) | DRG 689 ==
LOC: TELE 23:11 → MED 01-02 21:43
PROVIDERS: ADMIT Internal Medicine; ATTEND Nurse Practitioner Acute Care
DX: N39.0 Urinary tract infection, site not specified (principal); G93.41 Metabolic encephalopathy; I10 Essential (primary) hypertension; E11.9 Type 2 diabetes mellitus without complications; Z79.84 Long term (current) use of oral hypoglycemic drugs; Z79.899 Other long term (current) drug therapy; Z79.01 Long term (current) use of anticoagulants
CPT/HCPCS: 36415; 71045-TC; 80048-TC; 80061-TC; 82962-TC; 83605-TC; 83735-TC; 84100-TC; 85025-TC; 85027-TC; 87040-TC; 87081-TC; 92526; 92611-TC; 97116-TC; 97530-TC; A6403; G0378; J0696; J1815; J3475; J7030; J7060